=== PATIENT | female | born 1990 ===

== ENCOUNTER 2019-05-25 11:47 | Emergency (ER) | payer OTHER, MEDICAID ==
--- NOTE | 2019-05-25 11:58 | Event Note ---
ED Screening Note ED Screening Note: Referred from [facility] for LUQ LLQ pain. 10 weeks . Normal US 2 weeks ago. No vaginal bleeding. This initial assessment/diagnostic orders/clinical plan/treatment(s) is/are subject to change based on patients health status, clinical progression and re- assessment by fellow clinical providers in the ED. Further treatment and workup at subsequent clinical providers discretion. Patient/guardian urged not to elope from the ED as their condition may be serious if not clinically assessed and managed. Initial orders include: cbc bmp ua ordered US
[2019-05-25 11:59] VITALS: BP 131/65
[2019-05-25 12:33] LABS: Bilirubin,Urine NEG (Negative); Color,Urine Yellow (Yellow)
[2019-05-25 12:34] LABS: Blood,Urine NEG (Negative); Mucus,Urine FEW /HPF; Protein,Urine <15 mg/dL mg/dL (Negative); Urobilinogen,Urine < 2.0 mg/dL (<2.0); WBC,Urine < 1.0 /HPF (0.0-6.0)
[2019-05-25 12:35] LABS: RBC,Urine < 1.0 /HPF (0.0-6.0)
[2019-05-25] MEDS ORDERED: ONDANSETRON 4 MG/2 ML INJ IV ONE (13:23)
[2019-05-25] MEDS ORDERED: SODIUM CHLORIDE 0.9% 1000 ML 1,000 ML IV ONE (13:23)
--- NOTE | 2019-05-25 13:24 | Emergency Department Report ---
ED Abdominal Pain HPI - General Chief Complaint: Abdominal Pain Stated Complaint: LEFT SIDE PAIN Time Seen by Provider: 05/25/19 13:20 Source: patient Mode of arrival: Ambulatory Limitations: No Limitations - History of Present Illness Initial Comments: 29 YO AA OBESE FEMALE COMES TO ER FROM [facility] FOR EVALUATION OF SHARP DIFFUSE ABD PAIN. SHE POINTS TO LUQ AND THEN LLQ. NAUSEA. NO VOMITING. NO FEVER. PT IS 10 W NO VAG BLEEDING OR DISCHARGE PAIN STARTED YESTERDAY LISSETH AT [facility] SAW HER TODAY, DID PAP SMEAR AND SENT HER HERE. RX VITS LAST BM YESTERDAY NORMAL THIS WAS HER 2ND VISIT TO OB FOR THIS PREG; HAS NOT HAD AN U/S UNTIL TODAY DENIES CIG/ETOH/DRUGS Complaint: abdominal pain -: Sudden, days(s) Location: diffuse Radiation: none Migration to: no migration Quality: stabbing Consistency: intermittent Improves With: nothing Worsens With: nothing Associated Symptoms: denies other symptoms - Related Data Allergies Allergy/AdvReac Type Severity Reaction Status Date / Time No Known Allergies Allergy Unverified 05/25/19 11:50 ED Review of Systems ROS: Stated complaint: LEFT SIDE PAIN Other details as noted in HPI Comment: All other systems reviewed and negative ED Past Medical Hx - Past Medical History Previous Medical History?: Yes Additional medical history: MORBIDLY OBESE - Surgical History Past Surgical History?: No - Family History Family history: no significant - Social History Smoking Status: Never Smoker Substance Use Type: None ED Physical Exam - General Limitations: No Limitations General appearance: alert, in no apparent distress - Head Head exam: Present: atraumatic, normocephalic - Eye Eye exam: Present: normal appearance - ENT ENT exam: Present: mucous membranes moist - Neck Neck exam: Present: normal inspection - Respiratory Respiratory exam: Present: normal lung sounds bilaterally. Absent: respiratory distress - Cardiovascular Cardiovascular Exam: Present: regular rate, normal rhythm. Absent: systolic murmur, diastolic murmur, rubs, gallop - GI/Abdominal GI/Abdominal exam: Present: soft, tenderness, normal bowel sounds, other (OBESE). Absent: distended, guarding, rebound, rigid, diminished bowel sounds, hyperactive bowel sounds, hypoactive bowel sounds, organomegaly, mass, bruit, pulsatile mass, hernia - Extremities Exam Extremities exam: Present: normal inspection - Back Exam Back exam: Present: normal inspection, full ROM. Absent: CVA tenderness (R), CVA tenderness (L) - Neurological Exam Neurological exam: Present: alert, oriented X3 - Psychiatric Psychiatric exam: Present: normal affect, normal mood - Skin Skin exam: Present: warm, dry, intact, normal color. Absent: rash ED Course Vital Signs 05/25/19 11:56 Temperature 99 F Pulse Rate 88 Respiratory 18 Rate Blood Pressure 131/65 O2 Sat by Pulse 98 Oximetry ED Medical Decision Making - Lab Data Result diagrams: 05/25/19 13:30 05/25/19 13:30 - Radiology Data Radiology results: report reviewed, image reviewed NO ECTOPIC - Medical Decision Making RH POS BLOOD PER RECORDS SENT WITH PT FROM [facility] US NEG FOR ECTOPIC UA NOTED CBC NOTED NS/ZOFRAN/TYLENOL AND MIRALAX GIVEN IN ER PT DC HOME WITH DC POC AND OBGYN FOLLOW UP IN 48 HOURS FOR INTERVAL EXAM. Labs 05/25/19 05/25/19 12:14 13:30 WBC 7.7 RBC 4.51 Hgb 12.6 Hct 38.4 MCV 85 MCH 28 MCHC 33 RDW 13.7 Plt Count 291 Lymph % (Auto) 23.4 Parmer % (Auto) 13.0 H Eos % (Auto) 0.6 Baso % (Auto) 1.0 Lymph # 1.8 Parmer # 1.0 H Eos # 0.0 Baso # 0.1 Seg Neutrophils % 62.0 Seg Neutrophils # 4.8 Urine Color Yellow Urine Turbidity Slightly-cloudy Urine pH 7.0 Ur Specific Preston 1.021 Urine Protein <15 mg/dl Urine Glucose (UA) Neg Urine Ketones Neg Urine Blood Neg Urine Nitrite Neg Urine Bilirubin Neg Urine Urobilinogen < 2.0 Ur Leukocyte Esterase Neg Urine WBC (Auto) < 1.0 Urine RBC (Auto) < 1.0 U Epithel Cells (Auto) 16.0 H Urine Mucus Few Lab Results 05/25/19 05/25/19 Range/Units 12:14 13:30 WBC 7.7 (4.5-11.0) K/mm3 RBC 4.51 (3.65-5.03) M/mm3 Hgb 12.6 (10.1-14.3) gm/dl Hct 38.4 (30.3-42.9) % MCV 85 (79-97) fl MCH 28 (28-32) pg MCHC 33 (30-34) % RDW 13.7 (13.2-15.2) % Plt Count 291 (140-440) K/mm3 Lymph % (Auto) 23.4 (13.4-35.0) % Parmer % (Auto) 13.0 H (0.0-7.3) % Eos % (Auto) 0.6 (0.0-4.3) % Baso % (Auto) 1.0 (0.0-1.8) % Lymph # 1.8 (1.2-5.4) K/mm3 Parmer # 1.0 H (0.0-0.8) K/mm3 Eos # 0.0 (0.0-0.4) K/mm3 Baso # 0.1 (0.0-0.1) K/mm3 Seg Neutrophils % 62.0 (40.0-70.0) % Seg Neutrophils # 4.8 (1.8-7.7) K/mm3 Urine Color Yellow (Yellow) Urine Turbidity Slightly-cloudy (Clear) Urine pH 7.0 (5.0-7.0) Ur Specific Preston 1.021 (1.003-1.030) Urine Protein <15 mg/dl (Negative) mg/dL Urine Glucose (UA) Neg (Negative) mg/dL Urine Ketones Neg (Negative) mg/dL Urine Blood Neg (Negative) Urine Nitrite Neg (Negative) Urine Bilirubin Neg (Negative) Urine Urobilinogen < 2.0 (<2.0) mg/dL Ur Leukocyte Esterase Neg (Negative) Urine WBC (Auto) < 1.0 (0.0-6.0) /HPF Urine RBC (Auto) < 1.0 (0.0-6.0) /HPF U Epithel Cells (Auto) 16.0 H (0-13.0) /HPF Urine Mucus Few /HPF Lab Results 05/25/19 05/25/19 05/25/19 Range/Units 12:14 13:30 13:30 WBC 7.7 (4.5-11.0) K/mm3 RBC 4.51 (3.65-5.03) M/mm3 Hgb 12.6 (10.1-14.3) gm/dl Hct 38.4 (30.3-42.9) % MCV 85 (79-97) fl MCH 28 (28-32) pg MCHC 33 (30-34) % RDW 13.7 (13.2-15.2) % Plt Count 291 (140-440) K/mm3 Lymph % (Auto) 23.4 (13.4-35.0) % Parmer % (Auto) 13.0 H (0.0-7.3) % Eos % (Auto) 0.6 (0.0-4.3) % Baso % (Auto) 1.0 (0.0-1.8) % Lymph # 1.8 (1.2-5.4) K/mm3 Parmer # 1.0 H (0.0-0.8) K/mm3 Eos # 0.0 (0.0-0.4) K/mm3 Baso # 0.1 (0.0-0.1) K/mm3 Seg Neutrophils % 62.0 (40.0-70.0) % Seg Neutrophils # 4.8 (1.8-7.7) K/mm3 Sodium 136 L (137-145) mmol/L Potassium 4.1 (3.6-5.0) mmol/L Chloride 100.9 (98-107) mmol/L Carbon Dioxide 19 L (22-30) mmol/L Anion Gap 20 mmol/L BUN 6 L (7-17) mg/dL Creatinine 0.5 L (0.7-1.2) mg/dL Estimated GFR > 60 ml/min BUN/Creatinine Ratio 12 % Glucose 82 (65-100) mg/dL Calcium 9.6 (8.4-10.2) mg/dL HCG, Quant (0-4) mIU/mL Urine Color Yellow (Yellow) Urine Turbidity Slightly-cloudy (Clear) Urine pH 7.0 (5.0-7.0) Ur Specific Preston 1.021 (1.003-1.030) Urine Protein <15 mg/dl (Negative) mg/dL Urine Glucose (UA) Neg (Negative) mg/dL Urine Ketones Neg (Negative) mg/dL Urine Blood Neg (Negative) Urine Nitrite Neg (Negative) Urine Bilirubin Neg (Negative) Urine Urobilinogen < 2.0 (<2.0) mg/dL Ur Leukocyte Esterase Neg (Negative) Urine WBC (Auto) < 1.0 (0.0-6.0) /HPF Urine RBC (Auto) < 1.0 (0.0-6.0) /HPF U Epithel Cells (Auto) 16.0 H (0-13.0) /HPF Urine Mucus Few /HPF 05/25/19 Range/Units 13:30 WBC (4.5-11.0) K/mm3 RBC (3.65-5.03) M/mm3 Hgb (10.1-14.3) gm/dl Hct (30.3-42.9) % MCV (79-97) fl MCH (28-32) pg MCHC (30-34) % RDW (13.2-15.2) % Plt Count (140-440) K/mm3 Lymph % (Auto) (13.4-35.0) % Parmer % (Auto) (0.0-7.3) % Eos % (Auto) (0.0-4.3) % Baso % (Auto) (0.0-1.8) % Lymph # (1.2-5.4) K/mm3 Parmer # (0.0-0.8) K/mm3 Eos # (0.0-0.4) K/mm3 Baso # (0.0-0.1) K/mm3 Seg Neutrophils % (40.0-70.0) % Seg Neutrophils # (1.8-7.7) K/mm3 Sodium (137-145) mmol/L Potassium (3.6-5.0) mmol/L Chloride (98-107) mmol/L Carbon Dioxide (22-30) mmol/L Anion Gap mmol/L BUN (7-17) mg/dL Creatinine (0.7-1.2) mg/dL Estimated GFR ml/min BUN/Creatinine Ratio % Glucose (65-100) mg/dL Calcium (8.4-10.2) mg/dL HCG, Quant 13454 H (0-4) mIU/mL Urine Color (Yellow) Urine Turbidity (Clear) Urine pH (5.0-7.0) Ur Specific Preston (1.003-1.030) Urine Protein (Negative) mg/dL Urine Glucose (UA) (Negative) mg/dL Urine Ketones (Negative) mg/dL Urine Blood (Negative) Urine Nitrite (Negative) Urine Bilirubin (Negative) Urine Urobilinogen (<2.0) mg/dL Ur Leukocyte Esterase (Negative) Urine WBC (Auto) (0.0-6.0) /HPF Urine RBC (Auto) (0.0-6.0) /HPF U Epithel Cells (Auto) (0-13.0) /HPF Urine Mucus /HPF labs noted ua noted us noted NS/zofran/tylenol while in ER VSS non ill non toxic concerned for pt and family updated on findings of test dc home with obgyn follow up in 48 hours. - Differential Diagnosis RO ECTOPIC Critical care attestation.: If time is entered above; I have spent that time in minutes in the direct care of this critically ill patient, excluding procedure time. ED Disposition Clinical Impression: , Abdominal pain Disposition: DC- TO HOME OR SELFCARE Is pt being admited?: No Does the pt Need Aspirin: No Condition: Stable Instructions: (ED) Additional Instructions: FOLLOW UP WITH OBGYN IN 48 HOURS FOR INTERVAL LABS PELVIC REST UNTIL CLEARED BY OB PRENTAL VITAMIN DAILY TAKE A STOOL SOFTENER DAILY TYLENOL FOR PAIN STAY WELL HYDRATED Referrals: MADHU ALLEN MD [Staff Physician] - 3-5 Days PERRI GUTIERREZ MD [Staff Physician] - 3-5 Days [facility] [Outside] - 3-5 Days Time of Disposition: 13:41
--- NOTE | 2019-05-25 13:36 | Ultrasound Report ---
ULTRASOUND OBSTETRIC INDICATION: Abdominal pain. Clinical gestational age of 9 weeks, 1 day. TECHNIQUE: Transabdominal. COMPARISON: None available. FINDINGS: GESTATIONAL SAC: Well-defined oval shape and intrauterine in location. YOLK SAC: No significant abnormality. EMBRYO/FETUS: No significant abnormality. - [place]-Rump Length = 0.25 cm = 9 weeks, 2 day(s). - Heart Rate = 176 beats per minute. ADNEXA: No significant abnormality. FREE FLUID: None. ADDITIONAL FINDINGS: None. IMPRESSION: 1. Single, living intrauterine with estimated sonographic age of 9 weeks, 2 day(s). Signer Name: John Carlin MD Signed: 05/25/2019 1:32 PM Workstation Name: [id number]
--- NOTE | 2019-05-25 13:38 | Ultrasound Report ---
ULTRASOUND OBSTETRIC INDICATION: Abdominal pain. Clinical gestational age of 9 weeks, 1 day. TECHNIQUE: Transvaginal. COMPARISON: None available. FINDINGS: GESTATIONAL SAC: Well-defined oval shape and intrauterine in location. YOLK SAC: No significant abnormality. EMBRYO/FETUS: No significant abnormality. - [place]-Rump Length = 0.25 cm = 9 weeks, 2 day(s). - Heart Rate = 176 beats per minute. ADNEXA: No significant abnormality. FREE FLUID: None. ADDITIONAL FINDINGS: There is an indeterminate hypoechoic structure located along the uterine fundus adjacent to the gestational sac measuring 1.4 x 0.8 cm without internal color flow. IMPRESSION: 1. Single, living intrauterine with estimated sonographic age of 9 weeks, 2 day(s). 2. Possible small area of subchorionic hemorrhage as above. Signer Name: John Carlin MD Signed: 05/25/2019 1:33 PM Workstation Name: [id number]
[2019-05-25] MEDS ORDERED: ACETAMINOPHEN 325 MG/10.15 ML ORAL LIQD UNIT DOSE PO ONE (13:42)
[2019-05-25] MEDS ORDERED: POLYETHYLENE GLYCOL 3350 17 GM POWDER PO ONE (13:42)
[2019-05-25 13:45] LABS: Basophils # (Auto) 0.1 K/mm3 (0.0-0.1); Eosinophils % (Auto) 0.6 % (0.0-4.3); Hematocrit 38.4 % (30.3-42.9); Hemoglobin 12.6 gm/dl (10.1-14.3); Lymphocytes # (Auto) 1.8 K/mm3 (1.2-5.4); Lymphocytes % (Auto) 23.4 % (13.4-35.0); Mean Corpuscular HGB Conc 33 % (30-34); Mean Corpuscular Volume 85 fl (79-97); Platelet Count 291 K/mm3 (140-440); Red Blood Count 4.51 M/mm3 (3.65-5.03); Red Cell Distribution Width 13.7 % (13.2-15.2)
[2019-05-25 14:25] LABS: BUN/Creatinine Ratio 12; Blood Urea Nitrogen 6 mg/dL (7-17); Calcium 9.6 mg/dL (8.4-10.2); Hemolysis Index 15
== END 2019-05-25 16:12 | disposition home or self-care (01) ==
LOC: ED 11:47
DX: O26.891 Other specified pregnancy related conditions, first trimester (principal); R10.84 Generalized abdominal pain; Z3A.01 Less than 8 weeks gestation of pregnancy
CPT/HCPCS: 36415; 76801; 76817; 80048; 81001; 84702; 85025; 96374; 99284; J2405; J7030

== ENCOUNTER 2019-12-29 18:48 | Emergency (ER) | payer OTHER, MEDICAID ==
[2019-12-29] MEDS ORDERED: ACETAMINOPHEN 500 MG TAB PO ONE (20:27)
[2019-12-29 21:09] LABS: Basophils % (Auto) 0.6 % (0.0-1.8); Eosinophils # (Auto) 0.1 K/mm3 (0.0-0.4); Eosinophils % (Auto) 1.4 % (0.0-4.3); Hematocrit 39.8 % (30.3-42.9); Hemoglobin 12.7 gm/dl (10.1-14.3); Lymphocytes # (Auto) 2.9 K/mm3 (1.2-5.4); Lymphocytes % (Auto) 37.9 % (13.4-35.0); Mean Corpuscular HGB Conc 32 % (30-34); Mean Corpuscular Volume 87 fl (79-97); Monocytes # (Auto) 0.6 K/mm3 (0.0-0.8); Monocytes % (Auto) 7.7 % (0.0-7.3); Platelet Count 393 K/mm3 (140-440); Red Blood Count 4.58 M/mm3 (3.65-5.03); Red Cell Distribution Width 15.2 % (13.2-15.2)
--- NOTE | 2019-12-29 21:14 | Emergency Department Report ---
ED General Adult HPI - General Chief complaint: High BP Stated complaint: BP HIGH Source: patient Mode of arrival: Ambulatory Limitations: No Limitations - History of Present Illness Initial comments: Patient is a A0 29-year-old -Ivorian female who is approximately 2 weeks and who has a past medical history of morbid obesity presents to the ED with complaint of headache, and elevated blood pressure. Patient states that she was evaluated at her [employer] physician's clinic and was found to have elevated blood pressure and proteins in the urine and was advised to come to the ED for further evaluation. Patient however states that she has not eaten any food all day and suspect that her headache is from having not eaten all day. Patient however states that she has had intermittent proteinuria and elevated blood pressure throughout her , and that she delivered her baby at 38 weeks gestation after she went into normal labor. Patient denies abdominal pain, nausea and vomiting, dizziness, syncope, lightheadedness, dysuria, vaginal discharge, cough, chest pain or shortness of breath, seizures or fever and chills. MD Complaint: Headache, elevated blood pressure; suspected Preeclampsia -: Sudden, days(s) (2) Location: head Radiation: non-radiation Severity scale (0 -10): 6 Quality: aching, sharp Consistency: constant Improves with: none Worsens with: none Associated Symptoms: denies other symptoms, headaches, loss of appetite, malaise. denies: confusion, chest pain, cough, diaphoresis, fever/chills, nausea/vomiting, rash, seizure, shortness of breath, syncope, weakness, other Treatments Prior to Arrival: none - Related Data Previous Rx's Medication Instructions Recorded Last Taken Type Ondansetron [Zofran Odt] 4 mg PO Q8HR PRN #10 tab.rapdis 05/25/19 Unknown Rx Butalb/Acetamin/Caff 50-325-40 1 - 2 tab PO Q6HR PRN #15 tab 12/30/19 Unknown Rx [Fioricet 50-325-40] cephALEXin [Keflex] 500 mg PO Q8HR #30 cap 12/30/19 Unknown Rx Allergies Allergy/AdvReac Type Severity Reaction Status Date / Time No Known Allergies Allergy Unverified 05/25/19 11:50 ED Review of Systems ROS: Stated complaint: BP HIGH Other details as noted in HPI Constitutional: malaise. denies: chills, fever Eyes: denies: eye pain, eye discharge, vision change ENT: denies: ear pain, throat pain Respiratory: denies: cough, shortness of breath, wheezing Cardiovascular: denies: chest pain, palpitations Endocrine: no symptoms reported Gastrointestinal: denies: abdominal pain, nausea, vomiting, diarrhea Genitourinary: denies: urgency, dysuria, discharge Musculoskeletal: denies: back pain, joint swelling, arthralgia Skin: denies: rash, lesions Neurological: headache. denies: weakness, paresthesias Psychiatric: denies: anxiety, depression Hematological/Lymphatic: denies: easy bleeding, easy bruising ED Past Medical Hx - Past Medical History Hx Hypertension: No (GDM/DIET CONTROLED) Hx Heart Attack/AMI: No Hx Congestive Heart Failure: No Hx Diabetes: Yes Hx Deep Vein Thrombosis: No Hx Liver Disease: No Hx Renal Disease: No Hx Sickle Cell Disease: No Hx Seizures: No Hx Asthma: No Hx COPD: No Additional medical history: MORBIDLY OBESE - Surgical History Hx Pacemaker: No Hx Internal Defibrillator: No - Social History Smoking Status: Never Smoker - Medications Home Medications: Home Medications Medication Instructions Recorded Confirmed Last Taken Type Ondansetron [Zofran Odt] 4 mg PO Q8HR PRN #10 tab.rapdis 05/25/19 12/17/19 Unknown Rx Butalb/Acetamin/Caff 50-325-40 1 - 2 tab PO Q6HR PRN #15 tab 12/30/19 Unknown Rx [Fioricet 50-325-40] cephALEXin [Keflex] 500 mg PO Q8HR #30 cap 12/30/19 Unknown Rx ED Physical Exam - General Limitations: No Limitations General appearance: alert, in no apparent distress - Head Head exam: Present: atraumatic, normocephalic, normal inspection - Eye Eye exam: Present: normal appearance, PERRL, EOMI Pupils: Present: normal accommodation - ENT ENT exam: Present: normal exam, normal orophraynx, mucous membranes moist, TM's normal bilaterally, normal external ear exam - Neck Neck exam: Present: normal inspection, full ROM - Respiratory Respiratory exam: Present: normal lung sounds bilaterally. Absent: respiratory distress, wheezes, rales, rhonchi, chest wall tenderness, accessory muscle use, decreased breath sounds, prolonged expiratory - Cardiovascular Cardiovascular Exam: Present: normal rhythm, tachycardia, normal heart sounds. Absent: systolic murmur, diastolic murmur, rubs, gallop - GI/Abdominal GI/Abdominal exam: Present: soft, normal bowel sounds. Absent: tenderness, guarding, rebound, hyperactive bowel sounds, hypoactive bowel sounds, organomegaly - Extremities Exam Extremities exam: Present: normal inspection, full ROM, normal capillary refill - Back Exam Back exam: Present: normal inspection, full ROM. Absent: tenderness, muscle spasm, paraspinal tenderness, vertebral tenderness - Neurological Exam Neurological exam: Present: alert, oriented X3, CN II-XII intact, normal gait, reflexes normal - Psychiatric Psychiatric exam: Present: normal affect, normal mood - Skin Skin exam: Present: warm, dry, intact, normal color. Absent: rash ED Course Vital Signs 12/29/19 12/30/19 18:55 00:19 Temperature 98.9 F Pulse Rate 105 H 84 Respiratory 18 16 Rate Blood Pressure 144/93 146/68 [Right] O2 Sat by Pulse 98 100 Oximetry - Reevaluation(s) Reevaluation #1: 12/30/19 01:00 I paged and discussed the patient's case with Dr. Ann the [employer] physician education research analyst for Dr. Anthony Parker, the patient's [employer] physician. Dr. Ann advised that based on the patient's lab test results and vital signs, the patient may be discharged home and have her follow-up in the clinic with Dr. Parker in the next 5 to 7 days for reevaluation. Patient should be discharged home therefore with prescription for Keflex for UTI. ED Medical Decision Making - Lab Data Result diagrams: 12/29/19 20:38 12/29/19 20:38 - Medical Decision Making This is a A0 29-year-old -[place] female who is approximately 2 weeks and who has a past medical history of morbid obesity presents to the ED with complaint of headache, and elevated blood pressure. Patient states that she was evaluated at her [employer] physician's clinic and was found to have elevated blood pressure and proteins in the urine and was advised to come to the ED for further evaluation. Patient however states that she has not eaten any food all day and suspect that her headache is from having not eaten all day. Patient however states that she has had intermittent proteinuria and elevated blood pressure throughout her , and that she delivered her baby at 38 weeks gestation after she went into normal labor. In the ED, patient is alert and oriented x3 and is not in distress but tachycardic and slightly hypertensive in triage. Lab test results were reviewed and are all nonactionable except for proteinuria in urine and significant urinary tract infection and blood in urinalysis. Patient was treated with Rocephin in the ED for UTI. Patient also received normal saline 1 L IV bolus x1 and magnesium sulfate 2 g IV x1. I paged and discussed the patient's case with the [employer] physician education research analyst Dr. Ann for Dr. Anthony Parker who is the patient's [employer] physician. Dr. Ann advised that based on the patient's lab test results and vital signs, the patient will be discharged home to follow-up with Dr. Parker in the next 5 to 7 days for reevaluation. Patient was therefore discharged home on a new prescription for urinary tract infection medication Keflex 500 mg every 8 hours. Patient was advised to follow-up with Dr. Parker the next 5-7 days for reevaluation. Patient was otherwise advised to return to the ED immediately if her symptoms get worse especially if she develops nausea and vomiting, dizziness, seizures, severe headache or abdominal pain. - Differential Diagnosis preeclampsia; tension headache; UTI; Dysmenorrhea Critical care attestation.: If time is entered above; I have spent that time in minutes in the direct care of this critically ill patient, excluding procedure time. ED Disposition Clinical Impression: Acute urinary tract infection, Mild pre-eclampsia, Acute tension headache Qualifiers: Intractability: not intractable Qualified Code(s): G44.209 - Tension-type headache, unspecified, not intractable Disposition: DC-01 TO HOME OR SELFCARE Is pt being admited?: No Does the pt Need Aspirin: No Condition: Stable Instructions: Hypertension (ED), Pre-eclampsia and Eclampsia (ED), Urinary Tract Infection in Women (ED) Additional Instructions: Take medication with food, drink plenty fluids and follow-up with your [employer] physician Dr. Parker in 5 to 7 days for reevaluation. Return to the ED immediately if your symptoms get worse especially if you develop severe hea dache, abdominal pain, intractable nausea and vomiting, seizures or dizziness. Prescriptions: Butalb/Acetamin/Caff 50-325-40 [Fioricet 50-325-40] 1 - 2 tab PO Q6HR PRN #15 ta b PRN Reason: Headache cephALEXin [Keflex] 500 mg PO Q8HR #30 cap Referrals: ANTHONY PARKER MD [Staff Physician] - 3-5 Days Time of Disposition: 01:32 Print Language: FRENCH
[2019-12-29 21:15] LABS: Alanine Aminotransferase 12 units/L (7-56); Albumin 3.5 g/dL (3.9-5); BUN/Creatinine Ratio 18; Blood Urea Nitrogen 11 mg/dL (7-17); Calcium 9.4 mg/dL (8.4-10.2); Hemolysis Index 16
[2019-12-29 23:07] LABS: Bacteria,Urine 2+ /HPF (Negative); Bilirubin,Urine NEG (Negative); Blood,Urine LG (Negative); Color,Urine Yellow (Yellow); Mucus,Urine 1+ /HPF; RBC,Urine > 182.0 /HPF (0.0-6.0); Urobilinogen,Urine < 2.0 mg/dL (<2.0); WBC,Urine > 182.0 /HPF (0.0-6.0)
[2019-12-29] MEDS ORDERED: cefTRIAXone/NS 1 GM/50 ML 1 GM/50 ML BAG IV ONE (23:10)
[2019-12-29] MEDS ORDERED: MAGNESIUM SULFATE 2 GM/50 ML BAG IV ONE (23:27)
[2019-12-29] MEDS ORDERED: hydrALAZINE 20 MG/1 ML INJ IV ONE (23:35)
[2019-12-29] MEDS ORDERED: SODIUM CHLORIDE 0.9% 1000 ML 1,000 ML IV ONE (23:36)
[2019-12-30 00:19] VITALS: BP 146/68
== END 2019-12-30 01:40 | disposition home or self-care (01) ==
LOC: ED 18:48
DX: O86.29 Other urinary tract infection following delivery (principal); O14.05 Mild to moderate pre-eclampsia, complicating the puerperium; O90.89 Other complications of the puerperium, not elsewhere classified; G44.209 Tension-type headache, unspecified, not intractable; E11.9 Type 2 diabetes mellitus without complications; Z79.899 Other long term (current) drug therapy
CPT/HCPCS: 36415; 80053; 81001; 84703; 85025; 96365; 96367; 99283; J0696; J3475; J7030

== ENCOUNTER 2020-02-23 10:33 | Day surgery (SDC) | payer OTHER, MEDICAID ==
[2020-02-20 10:36] LABS: Hematocrit 36.7 % (30.3-42.9); Hemoglobin 12.4 gm/dl (10.1-14.3); Mean Corpuscular HGB Conc 34 % (30-34); Mean Corpuscular Volume 83 fl (79-97); Platelet Count 320 K/mm3 (140-440); Red Blood Count 4.42 M/mm3 (3.65-5.03); Red Cell Distribution Width 14.7 % (13.2-15.2)
--- NOTE | 2020-02-22 14:01 | History and Physical Report ---
History of Present Illness Date of examination: 02/22/20 History of present illness: 29 yo desires sterilization. Past History Past Medical History: other (gestational diabetes.) Past Surgical History: no surgical history Social history: no significant social history - Obstetrical History : 2 Medications and Allergies Allergies Allergy/AdvReac Type Severity Reaction Status Date / Time No Known Allergies Allergy Unverified 02/17/20 12:54 Home Medications Medication Instructions Recorded Confirmed Last Taken Type No Known Home Medications [No 02/17/20 02/17/20 Unknown History Reported Home Medications] Active Meds: Active Medications Acetaminophen (Tylenol) 1,000 mg PO PREOP JUDE Stop: 02/23/20 23:59 Celecoxib (Celebrex) 200 mg PO PREOP NR Stop: 02/23/20 23:59 Gabapentin (Gabapentin) 300 mg PO PREOP NR Stop: 02/23/20 23:59 Lactated Ringer's (Lactated Ringers) 1,000 mls @ 100 mls/hr IV DIRECT JUDE Stop: 02/23/20 23:59 Midazolam HCl (Versed) 2 mg IV PREOP NR Stop: 02/23/20 23:59 Review of Systems All systems: negative (except HPI) - Vital Signs Vital signs: Vital Signs Temp Pulse Resp BP Pulse Ox 98.2 F 70 20 133/85 99 02/20/20 09:20 02/20/20 09:20 02/20/20 09:20 02/20/20 09:20 02/20/20 09:20 Temp Pulse Resp BP Pulse Ox 98.2 F 70 20 133/85 99 02/20/20 09:20 02/20/20 09:20 02/20/20 09:20 02/20/20 09:20 02/20/20 09:20 - Physical Exam Cardiovascular: Regular rate, No murmurs Lungs: Positive: Clear to auscultation, Normal air movement Genitourinary (Female): Positive: other (pelvic exam deferred to the OR) Results Result Diagrams: 02/20/20 09:30 All other labs normal. Assessment and Plan - Patient Problems (1) Sterilization Status: Acute Plan to address problem: Pt will present on 02/22 for lap BTL. PT fully consented for surgery including the approximately 06/999 risk of failure.
[~2020-02-23 10:33] MED LIST: ACETAMINOPHEN 500 MG TAB PO SCH; CELECOXIB 200 MG CAP PO NR; GABAPENTIN 300 MG CAP PO NR; LACTATED RINGERS 1,000 ML IV SCH; MIDAZOLAM 2 MG/2 ML INJ IV NR
[2020-02-23] MEDS ORDERED: ROCURONIUM 50 MG/5 ML INJ IV ONE (12:11)
[2020-02-23] MEDS ORDERED: fentaNYL 100 MCG/2 ML INJ ONE (12:11)
[2020-02-23] MEDS ORDERED: LIDOCAINE MPF (2%) 20 MG/1 ML VIAL 5 ML ONE (12:11)
[2020-02-23] MEDS ORDERED: propofoL 200 MG/20 ML VIAL IV ONE (12:12)
[2020-02-23] MEDS ORDERED: SUCCINYLCHOLINE CHLORIDE 200 MG/10 ML INJ MDV ONE (13:13)
[2020-02-23] MEDS ORDERED: BUPIVACAINE/PF (0.5%) 5 MG/1 ML 30 ML VIAL INFILTRATI ONE ×2 (13:38→14:12)
[2020-02-23] MEDS ORDERED: ONDANSETRON 4 MG/2 ML INJ ONE ×2 (13:58→16:19)
[2020-02-23] MEDS ORDERED: NEOSTIGMINE 10MG/10 ML INJ MDV ONE (14:01)
[2020-02-23] MEDS ORDERED: GLYCOPYRROLATE 0.4 MG/2 ML INJ ONE (14:01)
[2020-02-23] MEDS ORDERED: KETOROLAC 30 MG/1 ML INJ ONE (14:04)
[2020-02-23] MEDS ORDERED: LACTATED RINGERS 1,000 ML ONE (14:06)
--- NOTE | 2020-02-23 14:10 | Post Operative Note ---
Date of procedure: 02/23/20 Pre-op diagnosis: Sterilization Post-op diagnosis: same Findings: Normal uterus, tubes and ovaries. Normal general abdominal/pelvic survey. No anomalies found. Procedure: Indication: 29-year-old desires sterilization Procedure: Laparoscopic bilateral tubal ligation. Patient taken the operating room and prepped and draped in usual fashion. Attention was first turned vaginally where single-tooth tenaculum was applied to the anterior lip of the cervix and an acorn uterine manipulator was placed. Attention was now turned abdominally where a 5 mm incision was made in the umbilicus. Veres needle then placed in the abdominal cavity. The abdomen was appropriately insufflated with CO2 gas. Veres needle removed and the 5 mm trocar was placed in abdominal cavity. Placement confirmed with the camera. Attention was turned suprapubically where an 8 mm incision was made and the 8 mm trocar was placed suprapubically in the midline under direct visualization. Trocar placed successfully and without difficulty. Attention was first turned to assess in the abdomen and pelvis. Findings noted above. Attention turned to the tubal ligation where a Filshie clip was applied to each tube. Each clip encompassed the full width of the tube on each side and good hemostasis was noted afterwards on both sides. At this point the abdomen was fully desufflated. Trochars were removed. Trocar sites were closed with 4-0 Vicryl in a subcuticular fashion followed by Marcaine. The acorn uterine manipulator and single-tooth tenaculum were removed. Procedure concluded at this point. Patient tolerated the procedure well. All instrument lap counts were correct. Patient taken to the recovery room in stable condition. Anesthesia: GETA Surgeon: SOSA DARBY Estimated blood loss: minimal Pathology: none Condition: stable Disposition: PACU
--- NOTE | 2020-02-23 14:11 | Short Stay Summary ---
Short Stay Documentation Date of service: 02/23/20 Narrative H&P: 29-year-old had an uncomplicated laparoscopic bilateral tubal ligation today. Please see H&P and operative report for details. Patient sent home in stable condition with instructions to follow-up in the office 2 weeks postop. - History H&P: dictated Social history: no significant social history - Allergies and Medications Current Medications: Allergies No Known Allergies Allergy (Unverified 02/17/20 12:54) Home Medications Medication Instructions Recorded Confirmed Last Taken Type Ibuprofen [Motrin 600 MG tab] 600 mg PO Q8H PRN #30 tablet 02/23/20 Unknown Rx oxyCODONE /ACETAMINOPHEN [Percocet 1 tab PO Q4HR PRN #30 tab 02/23/20 Unknown Rx 5/325] Active Medications Acetaminophen (Tylenol) 1,000 mg PO PREOP JUDE Stop: 02/23/20 23:59 Last Admin: 02/23/20 11:15 Dose: 1,000 mg Documented by: Celecoxib (Celebrex) 200 mg PO PREOP NR Stop: 02/23/20 23:59 Last Admin: 02/23/20 11:15 Dose: 200 mg Documented by: Gabapentin (Gabapentin) 300 mg PO PREOP NR Stop: 02/23/20 23:59 Last Admin: 02/23/20 11:15 Dose: 300 mg Documented by: Lactated Ringer's (Lactated Ringers) 1,000 mls @ 100 mls/hr IV DIRECT JUDE Stop: 02/23/20 23:59 Last Admin: 02/23/20 11:25 Dose: 100 mls/hr Documented by: Midazolam HCl (Versed) 2 mg IV PREOP NR Stop: 02/23/20 23:59 Last Admin: 02/23/20 11:45 Dose: 2 mg Documented by: - Disposition Condition at discharge: Stable Disposition: DC-01 TO HOME OR SELFCARE - Discharge Diagnoses (1) Sterilization Status: Acute Short Stay Discharge Plan Follow up with: SOSA DARBY MD [Staff Physician] - 14 Days Prescriptions: Ibuprofen [Motrin 600 MG tab] 600 mg PO Q8H PRN #30 tablet PRN Reason: Pain oxyCODONE /ACETAMINOPHEN [Percocet 5/325] 1 tab PO Q4HR PRN #30 tab PRN Reason: Pain , Severe (7-10)
[2020-02-23] MEDS ORDERED: SODIUM CHLORIDE 0.9% IRR 1,500 ML BOTTLE IR ONE (14:13)
[2020-02-23] MEDS ORDERED: HYDROmorphone 1 MG/1 ML INJ ONE ×2 (14:17→14:46)
[2020-02-23] MEDS ORDERED: oxyCODONE /ACETAMINOPHEN 5-325MG TAB PO PRN (14:35)
[2020-02-23] MEDS ORDERED: oxyCODONE /ACETAMINOPHEN 5-325MG TAB ONE (14:40)
[2020-02-23] MEDS: HYDROmorphone 1 MG/1 ML INJ IV PRN ×2 (14:47→15:00)
--- NOTE | 2020-02-23 15:29 | Anesthesia Consultation ---
Anesthesia Consult and Med Hx Date of service: 02/23/20 - Airway Anesthetic Teeth Evaluation: Good ROM Head & Neck: Adequate Mental/Hyoid Distance: Adequate Mallampati Class: Class II Intubation Access Assessment: Probably Good - Pulmonary Exam CTA: Yes - Cardiac Exam Cardiac Exam: RRR - Pre-Operative Health Status ASA Pre-Surgery Classification: ASA3 Proposed Anesthetic Plan: General - Pulmonary Hx Smoking: Yes (2-3 cigs/day) Hx Respiratory Symptoms: No - Cardiovascular System Hx Hypertension: No - Central Nervous System Hx Back Pain: No - Gastrointestinal Hx Gastroesophageal Reflux Disease: Yes - Endocrine Hx Renal Disease: No Hx Liver Disease: No Hx Insulin Dependent Diabetes: No Hx Non-Insulin Dependent Diabetes: No (gestational ) Hx Thyroid Disease: No - Other Systems Hx Obesity: Yes (BMI 52)
--- NOTE | 2020-02-23 15:29 | Anesthesia Day of Surgery ---
Anesthesia Day of Surgery - Day of Surgery Patient Examined: Yes Patient H&P Reviewed: Yes Patient is NPO: Yes
[2020-02-23] MEDS ORDERED: SIMETHICONE 80 MG CHEW TAB PO PRN (15:46)
[2020-02-23] MEDS ORDERED: ONDANSETRON 4 MG/2 ML INJ IV PRN (16:19)
[2020-02-23 16:26] VITALS: BP 147/88
--- NOTE | 2020-02-23 16:28 | Post Anesthesia Evaluation ---
- Post Anesthesia Evaluation Patient Participated: Yes Airway Patent: Yes Stable Respiratory Function: Yes Nausea/Vomiting: No Temp > 96.8F: Yes Pain Manageable: Yes Adequeate Hydration: Yes Anesthesia Complications: No
== END 2020-02-23 10:34 | disposition home or self-care (01) ==
LOC: OR 10:33
PROVIDERS: ATTEND Obstetrics & Gynecology
DX: Z30.2 Encounter for sterilization (principal); K21.9 Gastro-esophageal reflux disease without esophagitis; E66.9 Obesity, unspecified; E11.9 Type 2 diabetes mellitus without complications; F17.210 Nicotine dependence, cigarettes, uncomplicated; Z79.899 Other long term (current) drug therapy; Z87.440 Personal history of urinary (tract) infections; Z20.828 Contact with and (suspected) exposure to other viral communicable diseases; Z68.43 Body mass index [BMI] 50.0-59.9, adult; Z98.890 Other specified postprocedural states; Z82.49 Family history of ischemic heart disease and other diseases of the circulatory system
CPT/HCPCS: 36415; 58671; 84703; 85027; J0330; J1170; J1885; J2250; J2405; J2704; J2710; J3010; J7120; U0003